=== PATIENT | male | born 1955 | race Caucasian/White ===

== ENCOUNTER → 2016-10-25 | Outpatient (CLI) | payer OTHER | END | disposition home or self-care (01) | LOC: GMAM 11:26 | PROVIDERS: ATTEND Family Medicine | DX: Z12.5 Encounter for screening for malignant neoplasm of prostate (principal) ==

== ENCOUNTER → 2018-04-04 | Outpatient (CLI) | payer OTHER | LOC: GMAM 11:36 | PROVIDERS: ATTEND Family Medicine | DX: Z12.5 Encounter for screening for malignant neoplasm of prostate (principal) ==

== ENCOUNTER → 2018-12-01 | Outpatient (CLI) | payer OTHER | LOC: GMAM 10:47 | PROVIDERS: ATTEND Family Medicine | DX: I10 Essential (primary) hypertension (principal); E11.9 Type 2 diabetes mellitus without complications ==

== ENCOUNTER → 2018-12-03 | Outpatient (CLI) | payer OTHER | LOC: GMAM 16:49 | PROVIDERS: ATTEND Family Medicine | DX: E53.8 Deficiency of other specified B group vitamins (principal); R00.2 Palpitations; R53.82 Chronic fatigue, unspecified; E55.9 Vitamin D deficiency, unspecified ==

== ENCOUNTER → 2019-07-23 | Outpatient (CLI) | payer OTHER | LOC: GMAM 11:46 | PROVIDERS: ATTEND Family Medicine | DX: E53.8 Deficiency of other specified B group vitamins (principal); E55.9 Vitamin D deficiency, unspecified; E11.9 Type 2 diabetes mellitus without complications; R53.82 Chronic fatigue, unspecified; Z12.5 Encounter for screening for malignant neoplasm of prostate ==

== ENCOUNTER → 2020-05-02 | Outpatient (CLI) | payer OTHER | LOC: LAB.O 09:08 | PROVIDERS: ATTEND Internal Medicine Interventional Cardiology | DX: Z01.812 Encounter for preprocedural laboratory examination (principal) ==

== ENCOUNTER → 2020-05-05 | Outpatient (CLI) | payer OTHER ==
--- NOTE | 2020-05-05 11:06 | MRI ---
Study: MRI of the Left Shoulder. Indication: LEFT SHOULDER PAIN Technique: Multiplanar, multi sequence MRI of the left shoulder was obtained without intravenous contrast. Comparison: None. Findings: Severe hypertrophic AC joint osteoarthritis with moderate-sized joint effusion. Type I acromion with mild lateral downsloping. Small-volume subacromial/subdeltoid bursal fluid. High-grade supraspinatus and infraspinatus tendinosis noted with irregular high grade articular tearing throughout the critical zone fibers of the supraspinatus tendon approaching full-thickness. Subscapularis tendinosis with low-grade articular tearing superiorly. Minimal atrophy rotator cuff musculature. Long head biceps tendinosis. Circumferential labral truncation/degeneration. Mild glenohumeral joint osteoarthritis with small joint effusion. No acute fracture. Impression: High-grade supraspinatus and infraspinatus tendinosis with high-grade articular tearing throughout the critical zone supraspinatus tendon. Subscapularis tendinosis with low-grade articular tearing superiorly. Minimal atrophy rotator cuff musculature. Long head biceps tendinosis. Circumferential labral truncation and degeneration. Mild glenohumeral joint osteoarthritis with small joint effusion. Severe hypertrophic AC joint osteoarthritis. Electronically signed by: Wyatt Agarwal MD 05/05/2020 11:05 AM [facility]
== END ==
LOC: MRI 07:58
PROVIDERS: ATTEND Family Medicine
DX: M75.22 Bicipital tendinitis, left shoulder (principal); M77.9 Enthesopathy, unspecified; S43.432A Superior glenoid labrum lesion of left shoulder, initial encounter; M62.512 Muscle wasting and atrophy, not elsewhere classified, left shoulder; M19.012 Primary osteoarthritis, left shoulder